=== PATIENT | female | born 1990 | race Caucasian/White ===

== ENCOUNTER 2017-07-13 20:22 | Emergency (ER) | payer OTHER ==
[~2017-07-13] VITALS: Ht 167.6 cm; Wt 78.5 kg
[2017-07-13 20:25] VITALS: BP 143/85
[2017-07-13] MEDS ORDERED: LIDOCAINE-MPF 1%, 5ML INFIL ONE (21:00)
== END 2017-07-13 21:24 | disposition home or self-care (01) ==
LOC: ED 21:20
DX: S61.411A Laceration without foreign body of right hand, initial encounter (principal); W27.2XXA Contact with scissors, initial encounter; Y93.89 Activity, other specified; Y99.8 Other external cause status; Y92.89 Other specified places as the place of occurrence of the external cause
CPT/HCPCS: 99281